=== PATIENT | male | born 1960 ===

== ENCOUNTER 2018-01-29 11:39 | Emergency (ER) | payer SELFPAY ==
--- NOTE | 2018-01-29 14:22 | Emergency Department Report ---
ED Psych HPI - General Chief Complaint: High BP Stated Complaint: HIGH GLUCOSE/HBP Time Seen by Provider: 01/29/18 13:48 Source: patient Mode of arrival: Ambulatory - History of Present Illness Initial Comments: Mr. Rivas is a 57 yo male with hx of HTN, DM and CAD s/p PTCA 2010. He is a very pleasant gentleman with history of depression. He is quite upset that he is currently being to detained at [facility] by [facility]. He is very upset that he has not been allowed to return to his home country [facility]. He has refused food and medication since . He explains that he is on a hunger strike. He repeatedly denies suicidal ideation. He wants media attention to expose his story since he is being detained by [employer]. He denies any physical concerns. MD Complaint: feels depressed -: month(s) Associated Psychiatric Symptoms: depression History of same: Yes Quality: constant - Related Data Allergies Allergy/AdvReac Type Severity Reaction Status Date / Time ibuprofen Allergy Unknown Verified 01/29/18 11:54 ED Review of Systems ROS: Stated complaint: HIGH GLUCOSE/HBP Other details as noted in HPI Comment: All other systems reviewed and negative Constitutional: denies: fever, malaise Cardiovascular: denies: chest pain Gastrointestinal: denies: abdominal pain ED Past Medical Hx - Past Medical History Hx Hypertension: Yes Hx Diabetes: Yes Hx Seizures: Yes Hx Psychiatric Treatment: Yes (depression) Additional medical history: elevated cholesterol - Surgical History Hx Coronary Stent: Yes (x3) - Social History Smoking Status: Never Smoker Substance Use Type: None Other Social History: with 6 daughters ED Physical Exam - General Limitations: No Limitations General appearance: alert, in no apparent distress - Head Head exam: Present: atraumatic, normocephalic - Eye Eye exam: Present: normal appearance - ENT ENT exam: Present: mucous membranes moist - Neck Neck exam: Present: normal inspection. Absent: tenderness, meningismus - Respiratory Respiratory exam: Present: normal lung sounds bilaterally. Absent: respiratory distress, wheezes, rales, rhonchi - Cardiovascular Cardiovascular Exam: Present: regular rate, normal rhythm, normal heart sounds. Absent: bradycardia, tachycardia, systolic murmur, diastolic murmur, rubs, gallop - GI/Abdominal GI/Abdominal exam: Present: soft, normal bowel sounds. Absent: distended, tenderness, guarding, rebound - Rectal Rectal exam: Present: deferred - Extremities Exam Extremities exam: Present: normal inspection - Back Exam Back exam: Present: normal inspection - Neurological Exam Neurological exam: Present: alert, oriented X3 - Psychiatric Psychiatric exam: Present: normal affect, normal mood, other (obviously upset about his situation while being detained, denies SI) - Skin Skin exam: Present: warm, dry, intact, normal color. Absent: rash ED Course Vital Signs 01/29/18 11:48 Temperature 99 F Pulse Rate 100 H Respiratory 20 Rate Blood Pressure 179/115 O2 Sat by Pulse 98 Oximetry ED Medical Decision Making - Medical Decision Making Mr. Rivas is a 57 yo male with hx of depression, HTN, DM and CAD. He is very upset about his [facility] status. He is awaiting deportation to his home country of [place] [facility]. Due to delay, his and daughters are struggling financially since he is unable to provide while in custody. He denies SI/HI. He explains that he has a right to refuse food and medications. He appears well at this time. He does have elevated blood pressure here in ED. Accuchek 239. However, he is asymptomatic. He is very intelligent and highly educated. He is insightful and aware. He understands that the [facility] facility nor this hospital will be liable if her becomes ill since he has refused medical care at the clinic. He has decision making ability. He is alert and oriented He did not ask to come to the ER. According to policy of the facility, he required a second medical opinion. At this time, patient denies SI and HI. He is very motivated to live to provide for his family. He does want media attention to his scenario. He is afraid that he will be detained for years to come. Patient currently does not require medical care at this time. No current emergent condition exists which needs care. Morever, Mr Rivas has politely declined any intervention. He was very honest with me during an extensive conversation. I do anticipate that Mr. Rivas will become ill from complications of HTN, DM or CAD if he continues to refuse care. However, he is within his right to fast and not take medications. I have asked officers to arrange psychiatric consultation at the facility. Critical care attestation.: If time is entered above; I have spent that time in minutes in the direct care of this critically ill patient, excluding procedure time. ED Disposition Clinical Impression: Acute depression, Medical non-compliance Disposition: [id number] ANOTHER TYPE HLTHCARE Is pt being admited?: No Does the pt Need Aspirin: No Condition: Stable Instructions: Depression (ED) Additional Instructions: Mr. Rivas will need psychiatric consultation at the [facility] facility. Time of Disposition: 14:34
[2018-01-29 14:45] VITALS: BP 164/119
== END 2018-01-29 14:52 | disposition other institution (70) ==
LOC: ED 11:39
DX: F32.9 Major depressive disorder, single episode, unspecified (principal); I10 Essential (primary) hypertension; E11.9 Type 2 diabetes mellitus without complications; E78.00 Pure hypercholesterolemia, unspecified; Z88.6 Allergy status to analgesic agent; Z95.818 Presence of other cardiac implants and grafts
CPT/HCPCS: 82962; 99283